=== PATIENT | male | born 1955 | race Caucasian/White ===

== ENCOUNTER → 2018-03-10 | Outpatient (CLI) | payer BC ==
[~2018-03-10] MED LIST: NEXIUM20 MG PO; PRAVASTATIN PO
--- NOTE | 2018-03-10 09:55 | Diagnostic Imaging Report ---
CT scan chest. 03/10/2018 Clinical history: Chest pain; pneumonia Technique: Routine volumetric CT chest. No intravenous or enteric contrast. Coronal, sagittal and axial images generated from source data. Dose: 588.73 mGy-cm Comparison: None Findings: Lungs: Normal Airways: Normal Pleura: Normal Lymph nodes: Calcified prevascular node; otherwise, normal Pulmonary arteries: Normal caliber. Pulmonary artery diameter 2.7 cm. Thoracic aorta and great vessels: Normal caliber. Trace atherosclerosis. Heart and pericardium: Normal size. No effusion. Mild coronary artery calcification. Subdiaphragmatic organs: Ill-defined 2.5 x 2.3 cm low-attenuation nodule within the left lobe of the liver (image 47, series 2). Otherwise, normal Skeleton: Intact. Soft tissues: Normal. Impression: 1. No acute abnormality of the chest. Specifically, no evidence of pneumonia. 2. Mild coronary artery calcification. 3. Ill-defined 2.5 x 2.3 cm left liver nodule/mass. Limited evaluation on noncontrast CT. Liver protocol MRI recommended for definitive evaluation. This report was generated with voice-recognition technology. Errors in mixing and molding machine operator can occur. Please interpret accordingly and contact a radiologist if there are any questions regarding the report. Signed by: Dr. Rigo Henriquez M.D. on 03/10/2018 9:51 AM
== END ==
LOC: CT 08:24
PROVIDERS: ATTEND Internal Medicine Interventional Cardiology
DX: R07.9 Chest pain, unspecified (principal); R91.8 Other nonspecific abnormal finding of lung field
CPT/HCPCS: 71250

== ENCOUNTER → 2019-12-24 | Outpatient (CLI) | payer MEDICARE ==
[~2019-12-24] MED LIST changes: +LORAZEPAM INJ 2 MG/ML VIAL ONE
--- NOTE | 2019-12-24 10:09 | Diagnostic Imaging Report ---
MRI BRAIN WO HISTORY: Altered mental status COMPARISON: None. TECHNIQUE: Sagittal T2, axial T2, multiplanar T1, axial T2/FLAIR, axial gradient echo (or susceptibility weighted), and axial diffusion weighted MR images of the brain were obtained without contrast. DISCUSSION: Scalp/bone marrow: Unremarkable. Brain sulci: Appropriate for patient's age. Ventricles: Normal in size and configuration. No hydrocephalus. Extra-axial spaces: No masses or fluid collections. Parenchyma: A few small T2/FLAIR hyperintense foci throughout the supratentorial white matter are likely chronic microvascular ischemic changes. Otherwise, no mass, hemorrhage, or acute vascular insults. Vessels: Normal flow voids in major arteries and veins. Sellar/Suprasellar region: No abnormalities. Craniocervical junction: No abnormalities. Incidental findings: None. IMPRESSION: 1. No acute intracranial abnormalities. 2. Minimal supratentorial chronic microvascular ischemic change. Signed by: Dr. Richard Chacon M.D. on 12/24/2019 10:06 AM
== END ==
LOC: MRI 07:25
PROVIDERS: ATTEND Internal Medicine Interventional Cardiology
DX: R41.82 Altered mental status, unspecified (principal)
CPT/HCPCS: 70551; J2060